=== PATIENT | male | born 1955 | race Caucasian/White ===

== ENCOUNTER 2022-10-08 09:46 | Day surgery (SDC) | payer MEDICARE ==
--- NOTE | 2022-10-08 08:40 | HP ---
DATE OF SURGERY: 10/08/2022 HISTORY OF PRESENT ILLNESS: The patient is a 67-year-old with no prior colonoscopy. No bloody stools. No change in bowel habits. No new pain. Family history negative colon cancer. PAST MEDICAL HISTORY: Heart disease. Wears corrective lenses. Diabetes type 1. PAST SURGICAL HISTORY: Coronary stents, defibrillator and pacemaker. Hernia repair. MEDICATIONS: Aspirin, Ramipril, fenofibrate, spironolactone, simvastatin, carvedilol. ALLERGIES: NKDA. FAMILY HISTORY: Heart and renal disease. SOCIAL HISTORY: Smoker. No alcohol abuse. REVIEW OF SYSTEMS: Fourteen systems reviewed. No chest pain or palpitations. Other systems negative or noncontributory as above and per preadmission questionnaire. PHYSICAL EXAMINATION: BMI 20.8. GENERAL: No acute distress. HEENT: Sclerae nonicteric. EOMI. Oral mucous membranes moist. NECK: No JVD. CHEST: Equal excursion, nonlabored breathing. CVS: Regular rate and rhythm. ABDOMEN: Soft. EXTREMITIES: No significant edema. NEURO: Alert, oriented, moving extremities symmetrically. RECTAL: Deferred timed to endoscopy exam. PSYCH: Appropriate mood and affect. SKIN: Dry. IMPRESSION: Need for screening colonoscopy. I feel the patient is a candidate. Risk and benefits explained in detail including but not limited to bleeding or infection, risk of bowel injury or perforation, risk of missed or nondiagnosis or incomplete exam possibly enema, other studies or procedures, general risk of anesthesia or sedation, risk of bowel prep but not limited to, consent obtained. Will proceed with screening colonoscopy under MAC anesthesia as an outpatient.
[2022-10-08] MEDS ORDERED: Lactated Ringers 1,000 ML IV SCH (10:00)
[2022-10-08] MEDS ORDERED: Lactated Ringers 1,000 ML IV ONE (10:07)
[2022-10-08] MEDS ORDERED: Xylocaine-Mpf 2% 5 Ml Vial ONE (13:31)
[2022-10-08] MEDS ORDERED: DIPRIVAN 200 MG/20 ML IV ONE (13:31)
[2022-10-08] MEDS ORDERED: Versed 2 MG/2 ML Injection ONE (13:31)
[2022-10-08] MEDS ORDERED: Ketamine HCl 50 MG/ML ONE (13:32)
[2022-10-08 14:46] VITALS: BP 125/93; PULSE 68; O2SAT 98
--- NOTE | 2022-10-08 14:58 | OP ---
SURGERY DATE/TIME: 10/08/2022 1343 PREOPERATIVE DIAGNOSIS: Need for screening colonoscopy. POSTOPERATIVE DIAGNOSES: 1) ASA Class III. 2) Fair bowel prep. 3) Small early polyp versus hyperplastic lesion rectosigmoid and rectum. 4) Withdrawal time approximately eight minutes. PROCEDURES: 1) Colonoscopy to cecum. 2) Hot biopsy polypectomy small rectosigmoid colon polyps versus hyperplastic lesions x4. 3) Rectal polyp x1 removed with hot biopsy forceps hot biopsy polypectomy. SURGEON: Dr. Kofi Fonseca. ANESTHESIA: MAC. ESTIMATED BLOOD LOSS: Minimal. INDICATIONS: As noted above. Risks and benefits explained in detail but not limited to and consent obtained. DESCRIPTION OF PROCEDURE AND FINDINGS: The patient is taken to the operating room. MAC anesthesia induced. After official time out and no disagreement with planned procedure, digital rectal exam did not reveal any rectal masses. Video colonoscope inserted and passed up through the tortuous sigmoid, descending, transverse and ascending colon. He had a very tortuous colon. It took some time to get around but finally reached the cecum. Appendiceal orifice and ileocecal valve well visualized and photo documented. The scope is carefully withdrawn over the next eight minutes. Prep is on the fair with a little bit of semiliquidy stool slightly limiting the exam for very small lesions this is suctioned irrigated out as clear as possible just slightly limiting the exam. The scope is slowly and carefully withdrawn over the next eight minutes. No signs of any polyps, masses or any other obstructing lesions. In the rectosigmoid colon, he had four small 2 mm polyps versus hyperplastic lesions removed with hot biopsy polypectomy. Good hemostasis noted. There was one in the rectum in the upper third of the rectum was about 3 mm in size this was removed in two pieces in piecemeal fashion. Hot biopsy polypectomy. Good hemostasis noted. The scope is withdrawn. The patient tolerated the procedure well. There were no family to discuss the findings with out in the waiting area.
== END 2022-10-08 14:55 | disposition home or self-care (01) ==
LOC: SDC 09:46
PROVIDERS: ATTEND Surgery
DX: Z12.11 Encounter for screening for malignant neoplasm of colon (principal); K63.5 Polyp of colon; K62.1 Rectal polyp
CPT/HCPCS: J2250; J2704